=== PATIENT | male | born 1945 | race African-American/Black ===

== ENCOUNTER 2017-11-15 11:23 | Outpatient (CLI) | payer MEDICARE, SELFPAY ==
--- NOTE | 2017-11-15 10:37 | Diagnostic Imaging Report ---
Indication: Osteoporosis Technique: 10 mm thick slices obtained through the L2, L3, and L4 vertebral bodies. Cortical and trabecular regions of interest were drawn. The average trabecular bone mineral density was calculated. Total dose length product 33.39 mGycm. CTDIvol(s) 3, 3, 4 mGy. Dose reduction achieved using automated exposure control Comparison: 11/03/2015 Findings: The calculated bone mineral density is 103.5 mg ca-COTTON/ml. The T score is -2.69. This indicates the patient's bone mineral density is 2.69 standard deviations below that of normal 20-year-old males. The Z score is 0.81. This indicates the patient's bone mineral density is 0.81 standard deviations above that of age-matched controls Comparison prior study, bone mineral density is essentially unchanged from previous value of 102.8 and the T score is essentially unchanged from the previous value of -2.71 Impression: Patient's bone mineral density is greater than 25% below that of normal 20-year-old males. Patient is considered osteoporotic by WHO criteria. Insufficiency fracture risk is high. Patient should be considered for therapy, if not already initiated, with followup scan in one year to monitor response to therapy. Note that findings are essentially unchanged from prior study of [address] scanner at [facility] is accredited by the [employer] and the scans are performed using protocols designed to limit radiation exposure to as low as reasonably achievable to attain images of sufficient resolution adequate for diagnostic evaluation.
== END 2017-11-15 13:23 | disposition home or self-care (01) ==
LOC: CAT 11:23
DX: M81.0 Age-related osteoporosis without current pathological fracture (principal)
CPT/HCPCS: 77078

== ENCOUNTER 2019-04-24 08:26 | Outpatient (CLI) | payer MEDICARE, BC ==
--- NOTE | 2019-04-24 15:09 | Diagnostic Imaging Report ---
Indication: Prostate cancer, bilateral knee pain Technique: IV administration 24.5 mCi 99 M technetium MDP. Whole body and spot images were obtained. Correlated studies-none Comparison: None Findings: Fairly symmetrical increased tracer uptake is seen in the region of the proximal tibias. No other unusual foci of tracer uptake are demonstrated. There is mild prominence in the region of the paranasal sinuses, may reflect sinus disease. A blob of increased activity in the left elbow region is presumably extravasated tracer at the injection site. Normal renal and bladder activity Impression: Symmetric bilateral knee activity in the region of the proximal anterior 2 views. Probably degenerative in nature, could indicate traction at the level of the tibial tubercles. Recommend plain radiographic correlation No significant abnormality otherwise. No evidence of metastatic disease
== END 2019-04-24 10:26 | disposition home or self-care (01) ==
LOC: NUM 08:26
DX: M25.562 Pain in left knee (principal); M25.561 Pain in right knee; C61 Malignant neoplasm of prostate
CPT/HCPCS: 78306; A4641